=== PATIENT | female | born 1970 | race Caucasian/White ===

== ENCOUNTER 2020-06-10 14:40 | Emergency (ER) | payer BC ==
[~2020-06-10] VITALS: Ht 162.6 cm; Wt 68.9 kg
[2020-06-10 15:18] VITALS: Ht 162.6 cm; Wt 68.9 kg
[2020-06-10 16:27] LABS: BASOPHIL % 0.5 % (0-2); PLATELET COUNT 244 x10^3mcL (130-400)
[2020-06-10 16:48] LABS: CALCIUM 9.2 mg/dL (8.5-10.1); CARBON DIOXIDE 27.4 mmol/L (21-32); CHLORIDE SERUM 104 mmol/L (98-107); CREATININE SERUM 0.7 mg/dL (0.6-1.0); GFR1 > 60 mL/min; GLUCOSE SERUM 100 mg/dL (74-106); POTASSIUM SERUM 4.1 mmol/L (3.5-5.1); SODIUM SERUM 140 mmol/L (136-145)
[2020-06-10 16:53] LABS: ALBUMIN 4.2 g/dL (3.4-5.0); ALKALINE PHOSPHATASE 90 U/L (46-116); ALT/SGPT 44 U/L (14-59); AST/SGOT 27 U/L (15-37); BILIRUBIN TOTAL 0.4 mg/dL (0.20-1.00); TOTAL PROTEIN, SERUM 7.9 g/dL (6.4-8.2)
[2020-06-10 18:13] VITALS: BP 111/71
== END 2020-06-10 18:13 | disposition home or self-care (01) ==
LOC: ED 14:40
DX: R07.89 Other chest pain (principal)
CPT/HCPCS: Q0092